=== PATIENT | male | born 1965 | race Caucasian/White ===

== ENCOUNTER 2017-03-10 07:18 | Day surgery (SDC) | payer MEDICAID ==
[2016-01-28 09:09] VITALS: BMI 27.9
[2017-03-10] MEDS ORDERED: Lactated Ringer's 500 ML IV ONE (08:14)
[2017-03-10 08:30] VITALS: O2SAT 99
[2017-03-10] MEDS ORDERED: Propofol 10 mg/ml Inj (20 ML) ONE (08:54)
[2017-03-10] MEDS ORDERED: Lidocaine 2% MPF (5 ml) Inj ONE (08:55)
[2017-03-10 10:41] VITALS: TEMP 97
[2017-03-10 11:03] VITALS: BP 118/70; PULSE 52; RESP 16
== END 2017-03-10 11:51 | disposition home or self-care (01) ==
LOC: H.ENDO 07:18
PROVIDERS: ATTEND Internal Medicine Gastroenterology
DX: Z12.11 Encounter for screening for malignant neoplasm of colon (principal); E78.5 Hyperlipidemia, unspecified; F41.9 Anxiety disorder, unspecified; M54.9 Dorsalgia, unspecified; K64.0 First degree hemorrhoids; K30 Functional dyspepsia; K29.00 Acute gastritis without bleeding
CPT/HCPCS: 43239; 45378; 88305; J2704; J7120

== ENCOUNTER 2018-01-29 09:01 | Day surgery (SDC) | payer MEDICARE ==
[2018-01-29] MEDS ORDERED: Bupivacaine HCl 0.5% PF (30 ml) Inj ONE (09:38)
[2018-01-29] MEDS ORDERED: MethylPREDNISolone Depo 40 mg/ml Inj ONE (09:38)
[2018-01-29] MEDS ORDERED: Bupivacaine HCl 0.25% PF (30 ml) Inj ONE (09:39)
[2018-01-29] MEDS ORDERED: Iohexol 300 10 ML ONE (09:39)
[2018-01-29 09:43] VITALS: BMI 34.2
[2018-01-29] MEDS ORDERED: Dexamethasone 4 mg/1 ml ONE (09:49)
[2018-01-29] MEDS ORDERED: Lactated Ringer's 1,000 ML IV ONE (09:55)
[2018-01-29] MEDS ORDERED: Midazolam 2 MG/2 ML VIAL ONE (09:56)
[2018-01-29] MEDS ORDERED: Dexamethasone 4 mg/1 ml IM ONE (10:08)
[2018-01-29] MEDS ORDERED: Lactated Ringer's 1,000 ML IV SCH (10:30)
--- NOTE | 2018-01-29 11:13 | RAD ---
Date of service: 01/29/2018 PROCEDURE: Fluoroscopy up to 1 hr. HISTORY: PAIN MANAGEMENT COMPARISON: None TECHNIQUE: Standard protocol for this study/examination. FINDINGS: Total fluoroscopic time (continuous mode) utilized during the procedure 28.6 (seconds). IMPRESSION: Total exam DLP: 10.12 (mGy).
[2018-01-29 12:10] VITALS: RESP 18; O2SAT 98
[2018-01-29 12:25] VITALS: BP 130/70; PULSE 65; TEMP 98.1
--- NOTE | 2018-01-29 18:14 | OP ---
Copied To: Erica Esteban MD Attending MD: Erica Esteban MD PROCEDURE DATE: 01/29/2018 PREOPERATIVE DIAGNOSIS: Cervical radiculopathy. POSTOPERATIVE DIAGNOSIS: Cervical radiculopathy. PROCEDURE: C7-T1 interlaminar epidural steroid injection. ANESTHESIOLOGIST: Monico Huston MD. SURGEON: Erica Esteban MD TYPE OF ANESTHESIA: Monitored anesthesia care. COMPLICATIONS: None. SPECIMEN: None. DESCRIPTION OF PROCEDURE: After we had discussion of the procedure with the patient including its risks, benefits, alternatives, outcome data, possibility of no effect or increased pain, the patient consented to the procedure. He denies any recent infection, bleeding tendencies, or being on anticoagulants. Decision was then made to proceed to the OR. The patient was placed on the fluoroscopy table in a prone position using a head positioner. The neck was prepped and draped in the usual sterile fashion, and a sterile technique was adhered during the entire procedure. The C7-T1 interlaminar space was identified in the anteroposterior view. Slight cephalad angle was used to maximize the opening to this area. The skin overlying this area was then infiltrated with 1% lidocaine using a 25-gauge needle. Subsequently, a 20-gauge 3-1/2-inch Tuohy needle was then incrementally advanced under fluoroscopic guidance using the loss of resistance technique. After appropriate depth, the needle advancement was done under lateral fluoroscopy view. After loss of resistance was reached, approximately 5 mL of Decadron and normal saline mixture was gradually injected. The needle was then removed. The patient's neck was cleaned and dry. Bandages were applied. The patient was then transferred to the recovery area in good condition without any signs of ACCOUNT SERVICES REPRESENTATIVE toxicity or any neurological deficit. He will be followed in the office in approximately 2 to 4 weeks. Erica Esteban MD
== END 2018-01-29 13:00 | disposition home or self-care (01) ==
LOC: H.OPSURG 09:01
PROVIDERS: ATTEND Anesthesiology
DX: M54.12 Radiculopathy, cervical region (principal)
CPT/HCPCS: 62321; J1100; J2250; J3010; J7120

== ENCOUNTER 2018-03-12 09:10 | Day surgery (SDC) | payer MEDICARE ==
[2018-03-12 09:51] VITALS: RESP 18
[2018-03-12] MEDS ORDERED: Lactated Ringer's 1,000 ML IV ONE (11:10)
[2018-03-12] MEDS ORDERED: MethylPREDNISolone Depo 40 mg/ml Inj ONE (11:14)
[2018-03-12] MEDS ORDERED: MethylPREDNISolone Depo 40 mg/ml Inj INJ ONE (11:15)
[2018-03-12] MEDS ORDERED: Midazolam 2 MG/2 ML VIAL ONE (11:15)
[2018-03-12] MEDS ORDERED: Lactated Ringer's 1,000 ML IV SCH (11:30)
[2018-03-12 12:46] VITALS: BP 128/71; PULSE 52; TEMP 97.9; O2SAT 96
--- NOTE | 2018-03-12 21:22 | OP ---
PROCEDURE DATE: 03/12/2018 PREOPERATIVE DIAGNOSIS: Lumbar disk herniation. POSTOPERATIVE DIAGNOSIS: Lumbar disk herniation. PROCEDURE: L5-S1 interlaminar epidural steroid injection. ANESTHESIOLOGIST: Dr. Malik. SURGEON: Erica Esteban MD TYPE OF ANESTHESIA: Monitored anesthesia care. COMPLICATIONS: None. SPECIMEN: None. DESCRIPTION OF PROCEDURE: After we had a discussion of the procedure with the patient including its risks, benefits, alternatives, outcome data, and possibility of no effect or increased pain, the patient consented to the procedure. He denies any recent infection, bleeding tendencies, or being on anticoagulants. A decision was then made to proceed to the OR. The patient was placed on the fluoroscopy table in a prone position with two pillows underneath his abdomen. The back was prepped and draped in the usual sterile fashion. A sterile technique was adhered to during the entire procedure. The L5-S1 interlaminar space was first identified in the anteroposterior view. Slight cephalad angle was used to maximize the visualization of the interlaminar space. The skin overlying this area was then infiltrated with 1% lidocaine using 25-gauge needle. Subsequently, a 20-gauge 3.5-inch Tuohy needle was then incrementally advanced under fluoroscopic guidance until loss of resistance was reached at approximately 6 cm depth. A contralateral oblique angle at approximately 45 degrees was used to confirm the needle to be at the appropriate depth. Contrast was not injected due to the patient's list of allergies. After appropriate placement of the needle, approximately 5 mL of Depo-Medrol and normal saline mixture was gradually injected. The needle was then removed. The patient's back was cleaned, and dry bandages were applied. The patient was then transported to recovery area in good conditions without any signs of VENDING MACHINE FILLER toxicity or any neurological deficit. He will be following up in office in approximately two to four weeks. Erica Esteban MD
--- NOTE | 2018-03-14 12:13 | RAD ---
Date of service: 03/12/2018 PROCEDURE: Fluoroscopy up to 1 hr. HISTORY: PAIN MANAGEMENT COMPARISON: None TECHNIQUE: Standard protocol for this study/examination. FINDINGS: Total fluoroscopic time (continuous mode) utilized during the procedure 16.9 (seconds). Total exam DLP: 4.68 (mGy). IMPRESSION: Less than 1 hr fluoroscopic assistance provided during performance of the procedure.
== END 2018-03-12 13:40 | disposition home or self-care (01) ==
LOC: H.OPSURG 09:10 → EDSTATUS 12:45 → H.OPSURG 13:40
PROVIDERS: ATTEND Anesthesiology
DX: M51.26 Other intervertebral disc displacement, lumbar region (principal); M19.90 Unspecified osteoarthritis, unspecified site; E78.5 Hyperlipidemia, unspecified; K21.9 Gastro-esophageal reflux disease without esophagitis
CPT/HCPCS: 62323; J1030; J2250; J3010; J7120